=== PATIENT | male | born 1995 | race Caucasian/White ===

== ENCOUNTER 2022-01-07 08:44 | Emergency (ER) | payer MEDICAID ==
[~2022-01-07] VITALS: Ht 162.6 cm; Wt 82.0 kg
[2022-01-07 13:22] LABS: CLARITY URINE CLEAR (CLEAR); COLOR URINE YELLOW (YELLOW); KETONES URINE NEGATIVE (NEGATIVE); LEUKOCYTE ESTERASE URINE NEGATIVE (NEGATIVE); NITRITE URINE NEGATIVE (NEGATIVE); OCCULT BLOOD URINE NEGATIVE (NEGATIVE); PROTEIN URINE NEGATIVE (NEGATIVE); SPECIFIC GRAVITY URINE 1.014 (1.005-1.030); UROBILINOGEN URINE 0.2 E.U./dL (0.2-1.0)
[2022-01-07 14:09] LABS: BASOPHILS % 0.6 % (0.0-2.0); EOSINOPHILS % 1.6 % (0.0-5.0); HEMATOCRIT. 45.2 % (42.0-52.0); HEMOGLOBIN. 15.4 g/dL (14.0-18.0); LYMPHOCYTES % 27.2 % (20.0-50.0); MEAN CORPUSCULAR VOLUME 85.1 fL (80.0-94.0); MEAN PLATELET VOLUME 7.4 fl (7.4-10.4); MONOCYTES % 8.7 % (2.0-8.0); NEUTROPHILS % 61.9 % (40.0-76.0); PLATELET 223 x1000/uL (130-400); RED BLOOD CELL COUNT 5.31 mill/uL (4.7-6.1); RED CELL DISTRIBUTION WIDTH 14.9 % (11.6-14.6)
[2022-01-07 14:17] LABS: CHLORIDE 109 mEq/L (98-107)
[2022-01-07 14:28] LABS: ETHANOL BLOOD < 10 mg/dL
[2022-01-07 14:45] LABS: *AMPHETAMINES SCREEN URINE NEGATIVE (NEGATIVE); *BARBITURATES SCREEN URINE NEGATIVE (NEGATIVE); *BENZODIAZEPINES SCREEN URINE NEGATIVE (NEGATIVE); *COCAINE SCREEN URINE NEGATIVE (NEGATIVE); CANNABINOID URINE SCREEN NEGATIVE (NEGATIVE); METHADONE URINE SCREEN NEGATIVE (NEGATIVE); OPIATES URINE SCREEN NEGATIVE (NEGATIVE); PHENCYCLIDINE URINE SCREEN NEGATIVE (NEGATIVE)
[2022-01-08] MEDS: OLANZAPINE 5MG TABLET PO SCH ×2 (13:30→23:00)
[2022-01-08] MEDS ORDERED: OLANZAPINE 5MG TABLET PO SCH (13:45)
[2022-01-08] MEDS: FLUOXETINE HCL 10 MG CAPSULE PO SCH (13:58)
[2022-01-09] MEDS: FLUOXETINE HCL 10 MG CAPSULE PO SCH (09:26)
[2022-01-09] MEDS: OLANZAPINE 5MG TABLET PO SCH ×2 (09:26→21:39)
[2022-01-10] MEDS: FLUOXETINE HCL 10 MG CAPSULE PO SCH (10:06)
[2022-01-10] MEDS: OLANZAPINE 5MG TABLET PO SCH (10:06)
[2022-01-10 14:00] VITALS: BP 104/54
== END 2022-01-10 14:35 | disposition short-term general hospital (02) ==
LOC: ER 09:06
DX: R45.851 Suicidal ideations (principal); Z20.822 Contact with and (suspected) exposure to COVID-19
CPT/HCPCS: 36415; 80053; 80305; 80307; 80320; 80329; 81003; 85025; 87426; 99285; C9803; G0480